=== PATIENT | male | born 1990 | race Hispanic/Latino ===

== ENCOUNTER 2023-03-11 17:43 | Emergency (ER) | payer OTHER ==
[~2023-03-11] VITALS: Ht 177.8 cm; Wt 158.8 kg
[2023-03-11 18:16] VITALS: BP 156/93; PULSE 80; RESP 16; O2SAT 97
[2023-03-11 18:41] LABS: BASOPHILS # (AUTO) 0.05 K/uL (0.00-0.20); BASOPHILS % (AUTO) 0.6 % (0.0-5.0); EOSINOPHILS # (AUTO) 0.19 K/uL (0.00-0.70); EOSINOPHILS % (AUTO) 2.2 % (0.0-8.0); HEMATOCRIT 44.4 % (42-54); IMMATURE GRANULOCYTE ABSOLUTE 0.06 K/uL (0-1); LYMPHOCYTES # (AUTO) 2.1 K/uL (1.0-4.8); LYMPHOCYTES % (AUTO) 23.5 % (21.0-51.0); MEAN CORPUSCULAR HEMOGLOBIN 28.5 pg (27.0-33.0); MEAN CORPUSCULAR HGB CONC 32.9 g/dL (32.0-36.0); MEAN CORPUSCULAR VOLUME 86.7 fL (79-99); MONOCYTES # (AUTO) 0.5 K/uL (0.1-1.0); MONOCYTES % (AUTO) 5.6 % (3.0-13.0); NEUTROPHILS # (AUTO) 5.9 K/uL (1.8-7.7); NEUTROPHILS % (AUTO) 67.4 % (40.0-77.0); PLATELET COUNT (AUTO) 234 K/uL (130-400); RED BLOOD CELL COUNT(AUTO) 5.12 MIL/uL (4.50-6.20); RED CELL DISTRIBUTION WIDTH 12.6 % (11.0-15.5); WHITE BLOOD COUNT (AUTO) 8.8 K/uL (4.8-10.8)
[2023-03-11 19:05] LABS: CREATININE 0.8 mg/dL (0.5-1.5); POTASSIUM 3.8 mmol/L (3.5-5.1)
[2023-03-11 19:09] LABS: ALBUMIN 3.5 g/dL (3.5-5.0); BILIRUBIN,TOTAL 0.4 mg/dL (0.2-1.0); TOTAL PROTEIN, SERUM 7.5 g/dL (6.0-8.3)
== END 2023-03-11 20:48 | disposition home or self-care (01) ==
LOC: EDH 17:43
DX: M94.0 Chondrocostal junction syndrome [Tietze] (principal); I10 Essential (primary) hypertension; E78.00 Pure hypercholesterolemia, unspecified
CPT/HCPCS: 36415; 71045; 80053; 84484; 85025; 93005

== ENCOUNTER 2025-01-20 21:39 | Emergency (ER) | payer OTHER ==
[~2025-01-20] VITALS: Ht 177.8 cm; Wt 142.9 kg
[2025-01-20] MEDS: ASPIRIN 325MG TAB PO ONE (22:00)
[2025-01-20 22:06] LABS: IMMATURE GRANULOCYTE ABSOLUTE 0.06 K/uL (0-1); NUCLEATED RED BLOOD CELLS 0.0 % (0.0-0.19); PLATELET COUNT (AUTO) 212 K/uL (130-400); RED BLOOD CELL COUNT(AUTO) 5.27 MIL/uL (4.50-6.20); RED CELL DISTRIBUTION WIDTH 12.2 % (11.0-15.5); WHITE BLOOD COUNT (AUTO) 8.3 K/uL (4.8-10.8)
[2025-01-20 22:07] LABS: APPEARANCE,URINE CLEAR (CLEAR); GLUCOSE, URINE (UA) >=1000 mg/dL (NEGATIVE); LEUKOCYTE ESTERASE ,URINE NEGATIVE Leu/uL (NEGATIVE); NITRATE,URINE NEGATIVE (NEGATIVE); OCCULT BLOOD,URINE NEGATIVE (NEGATIVE)
[2025-01-20 22:08] LABS: ADD UA MICROSCOPIC YES
[2025-01-20 22:09] LABS: SQUAMOUS EPITHELIAL CELL,UR RARE /HPF (0-2)
[2025-01-20 22:17] LABS: CREATININE 0.8 mg/dL (0.5-1.3); GLOMERULAR FILTR. RATE CALC 118.0 mL/min (>90); GLUCOSE,RANDOM 308.0 mg/dL (70-105); SODIUM SERUM 137.0 mmol/L (136-145); UREA NITROGEN, BLOOD 16.0 mg/dL (7-18)
[2025-01-20 22:22] LABS: CREATINE KINASE, TOTAL 75.0 U/L (21-232)
[2025-01-20 22:31] LABS: AMPHET/METH SCREEN,URINE NEGATIVE (NEGATIVE); BARBITURATE SCREEN, URINE NEGATIVE (NEGATIVE); CANNABINOID SCREEN,URINE NEGATIVE (NEGATIVE); COCAINE SCREEN,URINE NEGATIVE (NEGATIVE)
--- NOTE | 2025-01-20 22:47 | ERN ---
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 Apparently he was in the high stress environment and at the facility blood pressure was checked and EMS was summoned and his blood pressure was in the 180s systolic. He also reported that he had some pain in his left precordial area so he was recommended to come to the emergency room. Patient did not have a loss of consciousness. No blurred vision diplopia motor weakness or seizure activity. No diaphoresis. He states that every time his gout flares up he has left-sided reproducible chest pain. He has been diagnosed with costochondritis in the past. Temperature 98.8 pulse 94 respirations 18 blood pressure 163/85 with a pulse oximetry of 97% on room air Chronic comorbidities include hypertension, hypercholesterolemia, gout, extreme obesity with a BMI of 45 Allergies: Coded Allergies: No Known Allergies (Unverified Allergy, Unknown, 03/11/23) Home Meds Active Scripts Colchicine (Colchicine) 0.6 Mg Capsule, 1 CAP PO BID for 10 Days, #20 CAP 0 Refills Prov:ASHLEY OLSEN MD 01/20/25 Past Medical History Past Medical History: High Cholesterol, Hypertension, Other Additional Past Medical Hx: GOUT Surgical History: None Family History: Negative Social History: Smokers, ETOH RN Note Reviewed/Agreed w/PFSH: Yes Review of System Dictation Constitutional: Negative for fever,chills, and weight loss Eyes: Negative for injury, pain,redness, and discharge ENT: Negative for injury,pain or swelling Cardiovascular: Positive for chest pain, denied palpitations, and edema Respiratory: Negative for shortness of breath, cough, and wheezing, Abdomen/GI: Negative for abdominal pain, nausea, vomiting, diarrhea, and constipation Back: Negative for injury and pain : Negative for injury, bleeding and discharge MS/Extremity: Negative for injury and deformity positive for joint pains Skin: Negative for rash, and discoloration Neuro: Negative for headache, weakness, numbness, tingling, and seizure Psych: Negative for suicide ideation, homicidal ideation, and hallucinations Initial Vital Sign VS Vital Signs Date Time Temp Pulse Resp B/P (MAP) Pulse Ox O2 Delivery O2 Flow Rate FiO2 01/20/25 21:43 98.8 94 18 163/85 97 01/20/25 22:02 Room Air* 0 21 Physical Exam Dictation General: awake, alert, NAD morbidly obese Head/Face: Normocephalic, atraumatic Eyes: PERRL, EOMI, vision at baseline ENT: oral cavity clear, TMs clear, no signs of infection Neck: Trachea midline, supple, no nuchal rigidity no carotid bruit Cardiovascular: RRR, normal S1/S2, No MRGs, no JVD tenderness on palpation of the left precordial area Respiratory: CTAB, no respiratory distress, No rales or wheezes Abdomen: Soft, non-tender, non-distended, normal bowel sounds, no guarding or rebound. Skin: Warm, dry, normal turgor, no rash MS/Extremity: Pulses equal, no cyanosis, neurovascular intact, FROM Neuro: COAx4, GCS 15, strength 5/5, CN 2-12 intact, normal cerebellar exam, normal gait, Psych: Normal behavior, mood, and affect normal Extremities-trace edema without any palpable cords, Homans sign is negative Results (Laboratory/Radiology) Laboratory/Radiology Laboratory Tests Test 01/20/25 21:54 White Blood Count 8.3 K/uL (4.8-10.8) Red Blood Count 5.27 MIL/uL (4.50-6.20) Hemoglobin 15.3 g/dL (14.0-18.0) Hematocrit 45.6 % (42-54) Mean Corpuscular Volume 86.5 fL (79-99) Mean Corpuscular Hemoglobin 29.0 pg (27.0-33.0) Mean Corpuscular Hemoglobin Concent 33.6 g/dL (32.0-36.0) Red Cell Distribution Width 12.2 % (11.0-15.5) Platelet Count 212 K/uL (130-400) Mean Platelet Volume 10.8 fL (7.5-10.5) H Immature Granulocyte % (Auto) 0.7 % (0-1) Neutrophils (%) (Auto) 67.2 % (40.0-77.0) Lymphocytes (%) (Auto) 25.0 % (21.0-51.0) Monocytes (%) (Auto) 5.6 % (3.0-13.0) Eosinophils (%) (Auto) 0.8 % (0.0-8.0) Basophils (%) (Auto) 0.7 % (0.0-5.0) Neutrophils # (Auto) 5.6 K/uL (1.8-7.7) Lymphocytes # (Auto) 2.1 K/uL (1.0-4.8) Monocytes # (Auto) 0.5 K/uL (0.1-1.0) Eosinophils # (Auto) 0.07 K/uL (0.00-0.70) Basophils # (Auto) 0.06 K/uL (0.00-0.20) Absolute Immature Granulocyte (auto 0.06 K/uL (0-1) Nucleated Red Blood Cells 0.0 % (0.0-0.19) Urine Color YELLOW (YELLOW) Urine Appearance CLEAR (CLEAR) Urine pH 5.5 (5.0-8.0) Urine Specific [place] 1.040 (1.001-1.031) Urine Protein 30 mg/dL (NEGATIVE) H Urine Glucose (UA) >=1000 mg/dL (NEGATIVE) H Urine Ketones 5 mg/dL (NEGATIVE) H Urine Occult Blood NEGATIVE (NEGATIVE) Urine Nitrate NEGATIVE (NEGATIVE) Urine Bilirubin NEGATIVE mg/dL (NEGATIVE) Urine Urobilinogen 4.0 mg/dL (0.2-1.0) H Urine Leukocyte Esterase NEGATIVE Gerald/uL Urine RBC 2-5 /HPF (0-1) H Urine WBC 2-5 /HPF (0-1) H Urine Squamous Epithelial Cells RARE /HPF (0-2) Urine Bacteria None /HPF (None Seen) Urine Hyaline Casts 2-5 /LPF (0-1 /LPF) H Sodium Level 137 mmol/L (136-145) Potassium Level 3.8 mmol/L (3.5-5.1) Chloride Level 100 mmol/L (101-111) L Carbon Dioxide Level 32 mmol/L (21-32) Blood Urea Nitrogen 16 mg/dL (7-18) Creatinine 0.8 mg/dL (0.5-1.3) Glomerular Filtration Rate Calc 118 mL/min (>90) Random Glucose 308 mg/dL (70-105) H Total Calcium 9.4 mg/dL (8.5-10.1) Total Creatine Kinase 75 U/L (21-232) Troponin I High Sensitivity 5 ng/L (4-75) Urine Opiates Screen NEGATIVE (NEGATIVE) Urine Barbiturates Screen NEGATIVE (NEGATIVE) Urine Phencyclidine Screen NEGATIVE (NEGATIVE) Urine Amphetamines Screen NEGATIVE (NEGATIVE) Urine Benzodiazepines Screen NEGATIVE (NEGATIVE) Urine Cocaine Screen NEGATIVE (NEGATIVE) Urine Marijuana (THC) Screen NEGATIVE (NEGATIVE) Labs Reviewed?: Yes X-RAY Comment: REASON: chest pain ORDERING PHYSICIAN: ASHLEY OLSEN MD PROCEDURE: CXR1VW - CHEST 1VW EXAM: CR Chest, 1 view. CLINICAL HISTORY: Chest pain. COMPARISON: Chest x-ray dated 03/11/23. FINDINGS: The lungs show no infiltrate or other acute findings. No pleural effusion or pneumothorax. The cardiomediastinal silhouette is within normal limits. No acute osseous abnormality. IMPRESSION: No acute cardiopulmonary pathology is evident. No gross interval changes. /[place] DICTATED BY: CHANA ROMERO Jr., MD DATE: 01/20/252352 ELECTRONICALLY SIGNED BY: CHANA ROMERO Jr., MD DATE: 01/20/252352 ED Course ED Course Orders Procedure Category Date Status Time Cbc With Differential LAB 01/20/25 Complete 21:45 Chest 1vw RAD 01/20/25 Resulted 21:45 12 Lead Ekg Tracing- EKG 01/20/25 Logged Technical 21:45 Creatine Kinase, Total LAB 01/20/25 Complete 21:45 Troponin I High LAB 01/20/25 Complete Sensitivity 21:45 Urinalysis Profile LAB 01/20/25 Complete 21:45 Basic Metabolic Panel LAB 01/20/25 Complete 21:45 Drug Screen Urine LAB 01/20/25 Complete 21:54 Aspirin 325mg Tab PHA 01/20/25 Complete (Aspirin 325mg Tab) 22:00 Ketorolac PHA 01/20/25 Complete Tromethamine 30mg/Ml 23:00 0.9%Nacl 1000ml (Ns PHA 01/20/25 Complete 1000ml) 23:00 Current Medications Medications (Trade) Dose Ordered Sig/Stephanie Route PRN Reason Start Time Stop Time Status Last Admin Dose Admin Aspirin (Aspirin 325mg Tab) 325 mg ONCE ONCE PO 01/20/25 22:00 01/20/25 22:01 DC 01/20/25 22:00 Ketorolac Tromethamine (toRADol) 30 mg ONCE ONCE IVP 01/20/25 23:00 01/20/25 23:01 DC 01/20/25 23:22 Sodium Chloride 1,000 ml @ 0 mls/hr ONCE ONCE IV 01/20/25 23:00 01/20/25 23:01 DC 01/20/25 23:21 Vital Signs Date Time Temp Pulse Resp B/P (MAP) Pulse Ox O2 Delivery O2 Flow Rate FiO2 01/20/25 22:02 98.1 94 20 135/89 97 Room Air* 0 21 01/20/25 21:43 98.8 94 18 163/85 97 We will perform diagnostic labs, imaging and administer medications according to the patient's complaint. Once the results are available, will review and personally interpreted the labs to rule out any acute life-threatening emergency the trach require immediate intervention and treatment. I will then re-evaluate the patient after treatment and diagnostic exams have return to determine whether the patient requires any further testing, can safely be discharged home or need further admission to hospital for additional treatment and evaluation. Labs reviewed CBC with a normal limits BNP 7 showed a sugar of 308 troponins are negative urine drug screen is negative urinalysis is unremarkable. Chest x-ray is unremarkable for any acute infiltrate. We will give a trial of nonsteroidal anti-inflammatory agent for joint pains. HEART Score Response (Comments) Value History: Low suspicion (0) 0 EKG: Normal 0 Age: < 45yrs (0) 0 Risk Factors: 3+ risk factors (+2) 2 Initial Troponin: Normal limit (0) 0 HEART Score Risk: Low Risk for MACE (1-3) Total 2 Medical Decision Making MDM MDM: Differential diagnosis: Rationale: Tests considered and ordered secondary to shared decision making include: Previous outside records reviewed: Old ER visits. Risk of complication and/or morbidity or mortality of patient management: None Medications-Per medication reconciliation Need for hospitalization: Patient does not meet criteria for hospitalization. Need for emergency major/minor surgery: No There are no social concerns with this patient. Prescription drug management Prescriptions will include symptomatic care Patient's prior external medical records from other ER visits were reviewed by me as indicated. Prior testing and results from previous visits were reviewed. Prior tests were taken into account with medical decision making and resource utilization, independent historian/historians were used to obtain complete medical history. I independently interpreted the test that were performed, results were reviewed by me and considered findings on radiology if ordered. Medical management and examination interpretation discussions were had by me with other qualified healthcare professionals as indicated for the patient's care. Problem List Problem List: (1) Costochondritis (2) Gout attack (3) Uncontrolled hypertension (4) Morbid obesity with BMI of 45.0-49.9, adult (5) Hyperglycemia DX & DISP Disposition: Discharge Departure Impression: Primary Impression: Costochondritis Additional Impressions: Uncontrolled hypertension, Gout attack, Morbid obesity with BMI of 45.0-49.9, adult, Hyperglycemia Condition: Stable Scripts Ketorolac Tromethamine (Toradol) 10 Mg Tab 10 MG PO QID for pain for 5 Days, #20 TAB 0 Refills Prov: ASHLEY OLSEN MD 01/20/25 Colchicine (Colchicine) 0.6 Mg Capsule 1 CAP PO BID for 10 Days, #20 CAP 0 Refills Prov: ASHLEY OLSEN MD 01/20/25 Additional Instructions: Patient and the caregiver have been informed of all the diagnostic tests and the imaging conducted during the today's visit to the emergency room and has verbalized understanding of the results I have personally reviewed and interpreted all diagnostic exams performed here in the ER today as well as the vital signs documented by the nursing staff. The patient is now being discharged to home and should follow up with the primary care physician or the specialist as directed by the ER staff. Follow-up with primary care provider in 1 to 2 days. Take medications as directed here in the emergency room. Okay to continue home medications unless otherwise discussed during your visit in the emergency room today. Return to your nearest emergency room if symptoms worsen or if there is no improvement. Call 911 if you need immediate assistance. Take Tylenol or Motrin [id number] as needed and if no contraindications are present. Increase oral hydration. A wound culture or urine culture was ordered here in the e mergency room department please follow-up with primary care provider and advise them to get repeat ports from our facility. If you had any Jacob wrap/splints that were applied here, please do not remove them until you see your primary care or specialty. Extensive counseling on weight loss diet exercise and lifestyle modifications to reduce long-term comorbidities complications and I recommended that he follow up with his primary care physician to be evaluated for diabetes mellitus.- hemoglobin A1c Accu-Chek training and diabetes management. Referrals: SELF,REFERRAL (PCP) ASHLEY OLSEN MD Jan 20, 2025 22:47
--- NOTE | 2025-01-20 22:55 | HMCIMG ---
EXAM: CR Chest, 1 view. CLINICAL HISTORY: Chest pain. COMPARISON: Chest x-ray dated 03/11/23. FINDINGS: The lungs show no infiltrate or other acute findings. No pleural effusion or pneumothorax. The cardiomediastinal silhouette is within normal limits. No acute osseous abnormality. IMPRESSION: No acute cardiopulmonary pathology is evident. No gross interval changes. /[place]
[2025-01-20] MEDS: 0.9%NACL 1000ML 1,000 ML IV ONE (23:21)
[2025-01-20] MEDS ORDERED: COLC0.6C3 PO (23:31)
[2025-01-20] MEDS ORDERED: KETO10 PO (23:43)
[2025-01-20 23:52] VITALS: BP 139/88; PULSE 83; RESP 14; TEMP 98.1; O2SAT 98
--- NOTE | 2025-01-21 07:04 | EKG ---
[facility] Test Date: 2025-01-20 Test Time: 21:48:36 Pat Name: JOSELO ASHRAF Department: ED Room: Gender: Male Sailor: [id number] : 1990 Requested By: ASHLEY OLSEN Order Number: [id number] Reading MD: Measurements Intervals [place] Rate: 97 P: 15 VT: 158 QRS: 2 QRSD: 114 T: 17 QT: 388 QTc: 493 Interpretive Statements Sinus rhythm Prolonged QT interval No previous ECG available for comparison Please click the below link to view image of tracing.
== END 2025-01-21 00:11 | disposition home or self-care (01) ==
LOC: EDH 21:39
DX: M94.0 Chondrocostal junction syndrome [Tietze] (principal); I10 Essential (primary) hypertension; E66.01 Morbid (severe) obesity due to excess calories; E78.00 Pure hypercholesterolemia, unspecified; F17.200 Nicotine dependence, unspecified, uncomplicated; M10.9 Gout, unspecified; Z68.42 Body mass index [BMI] 45.0-49.9, adult; Z79.899 Other long term (current) drug therapy
CPT/HCPCS: 99285; 96374; 71045; 82550; 84484; 80048; 80305; 85025; 36415; 93005; 81001; J1885; J7030